=== PATIENT | female | born 1995 | race Caucasian/White ===

== ENCOUNTER 2023-06-22 16:07 | Emergency (ER) | payer MEDICAID, SELFPAY ==
[2023-06-22 16:13] VITALS: BP 127/85; PULSE 98; RESP 16; TEMP 36.7; O2SAT 98; BMI 35.2
--- NOTE | 2023-06-22 16:27 | ED.DENTAL1 ---
HPI - Dental/Oral General Chief complaint: Dental/Oral Stated complaint: DENTAL PAIN Time Seen by Provider: 06/22/23 16:17 Source: patient Mode of arrival: walk-in History of Present Illness HPI Narrative: patient is a 28-year-old female who presents to the emergency department for the evaluation of pain in the left mandible after chipping tooth #18 last night on a snack. She states part of the tooth broke off and she has had pain and swelling to the left side of the mandible today. She denies any drainage from the tooth. No fevers or vomiting. No difficulty swallowing or breathing. She is not concerned for . No medications taken prior to arrival. Related Data Previous Rx's Medication Instructions Recorded amoxicillin 500 mg capsule 500 mg PO TID 10 days #30 caps 06/22/23 ketorolac 10 mg tablet 10 mg PO TID PRN pain #10 tabs 06/22/23 Allergies Allergy/AdvReac Type Severity Reaction Status Date / Time No Known Drug Allergies Allergy Verified 06/22/23 16:13 Review of Systems ROS Constitutional Denies: fever or chills Cardiovascular Denies: chest pain Respiratory Denies: shortness of breath Gastrointestinal Denies: nausea or vomiting Musculoskeletal Denies: back pain Integumentary/Breast Denies: rash Neurological Denies: headache Exam Narrative Exam Narrative: Gen.: Awake, alert, in no distress Head: Normocephalic, atraumatic ENT: Moist mucous membranes; generally poor dentition with tooth #17 with a small avulsion at the gumline, laterally. No abscess formation or gum swelling. No redness or swelling No palpable abscess. under the tongue. Clear speech. Uvula is midline. No trismus or drooling. no significant swelling noted at the left mandible Respiratory: No respiratory distress Extremities: Moves extremities equally Psych: Normal mood and affect Neuro: No focal neuro deficit Skin: Warm, dry, intact Constitutional Vital Signs, click to edit/add: Last Vital Signs Temp 98.1 F 06/22/23 16:13 Pulse 98 H 06/22/23 16:13 Resp 16 06/22/23 16:13 BP 127/85 06/22/23 16:13 Pulse Ox 98 06/22/23 16:13 O2 Del Method Room Air 06/22/23 16:20 Course Vital Signs Vital signs: Vital Signs Temperature 98.1 F 06/22/23 16:13 Pulse Rate 98 H 06/22/23 16:13 Respiratory Rate 16 06/22/23 16:13 Blood Pressure 127/85 06/22/23 16:13 Pulse Oximetry 98 06/22/23 16:13 Oxygen Delivery Method Room Air 06/22/23 16:13 Temperature 98.1 F 06/22/23 16:13 Pulse Rate 98 H 06/22/23 16:13 Respiratory Rate 16 06/22/23 16:13 Blood Pressure 127/85 06/22/23 16:13 Pulse Oximetry 98 06/22/23 16:13 Oxygen Delivery Method Room Air 06/22/23 16:20 MDM - Dental/Oral MDM Narrative Medical decision making narrative: exam is consistent with partial avulsion of tooth with possible early dental infection, although at this time there is no significant dental abscess. Patient placed on amoxicillin, anti-inflammatories and given topical analgesia for comfort. Follow-up with dentist as scheduled and return to the Emergency Room if symptoms change or worsen. Medical Records Attestation: I reviewed the patient's medical records. Discharge Plan Discharge Chief Complaint: Dental/Oral Clinical Impression: Toothache, Fracture of tooth Patient Disposition: Home, Self-Care Time of Disposition Decision: 16:25 Condition: Good Prescriptions / Home Meds: New amoxicillin 500 mg capsule 500 mg PO TID 10 Days Qty: 30 0RF ketorolac 10 mg tablet 10 mg PO TID PRN (Reason: pain) Qty: 10 0RF Instructions: Toothache (ED) Stand Alone Forms: Portal Instructions Referrals: [facility] [Primary Care Provider] - 1 week
[2023-06-22] MEDS: BENZOCAINE 30 ML, lidocaine HCL 15 ML MM (16:35)
== END 2023-06-22 16:43 | disposition home or self-care (01) ==
PROVIDERS: Emergency Provider Emergency Medicine; PCP Family Medicine
DX: S02.5XXA Fracture of tooth (traumatic), initial encounter for closed fracture (principal); K08.89 Other specified disorders of teeth and supporting structures; X58.XXXA Exposure to other specified factors, initial encounter
CPT/HCPCS: 99283